=== PATIENT | male | born 1980 | race Caucasian/White ===

== ENCOUNTER 2018-10-11 09:37 | Emergency (ER) | payer SELFPAY ==
[2018-10-11] MEDS ORDERED: Lidocaine 1% (PF) 30 ML VIAL ONE (10:06)
--- NOTE | 2018-10-11 10:28 | RAD ---
Right Little finger 3 views HISTORY: Injury. FINDINGS: Joint spaces are preserved. Soft tissue amputation of the distal tip of the finger with cor tical irregularity of the distal tuft suggesting minimal osseous amputation. No metallic foreign bodies are apparent.
[2018-10-11] MEDS ORDERED: Bacitracin Zinc 1 Packet ONE (11:19)
== END 2018-10-11 11:34 | disposition home or self-care (01) ==
LOC: ERS 09:37
DX: S61.306A Unspecified open wound of right little finger with damage to nail, initial encounter (principal); W23.0XXA Caught, crushed, jammed, or pinched between moving objects, initial encounter
CPT/HCPCS: J2001